=== PATIENT | male | born 1995 | race Caucasian/White ===

== ENCOUNTER 2025-06-02 07:34 | Outpatient (CLI) | payer BC, SELFPAY | END 2025-06-02 07:35 | disposition home or self-care (01) | PROVIDERS: PCP Family Medicine; Visit Provider Family Medicine | DX: Z00.00 Encounter for general adult medical examination without abnormal findings (principal); Z13.6 Encounter for screening for cardiovascular disorders | CPT/HCPCS: 80053; 80061; 84403 ==